=== PATIENT | female | born 1995 | race Two or more races ===

== ENCOUNTER → 2016-08-24 | Outpatient (REF) | payer OTHER ==
[2016-08-24 12:41] LABS: ALBUMIN/GLOBULIN RATIO 1.18 (1.00-1.93); ALKALINE PHOSPHATASE 113 U/L (45-117); ALT/SGPT 59 U/L (12-78); ANION GAP 8 MEQ/L (8-16); AST/SGOT 23 U/L (15-37); BILIRUBIN,TOTAL 0.2 MG/DL (0.2-1.0); BLOOD UREA NITROGEN 11 MG/DL (7-18); CALCIUM LEVEL 9.2 MG/DL (8.5-10.1); CARBON DIOXIDE LEVEL 27 MEQ/L (21-32); CHLORIDE LEVEL 107 MEQ/L (98-107); CREATININE FOR GFR 0.72 MG/DL (0.55-1.02); GLOMERULAR FILTRATION RATE > 60.0 (>60); GLUCOSE, FASTING 83 MG/DL (70-105); POTASSIUM SERUM 4.7 MEQ/L (3.5-5.1); SODIUM LEVEL 142 MEQ/L (136-145); TOTAL PROTEIN 7.4 GM/DL (6.4-8.2)
[2016-08-24 13:03] LABS: MEAN CORPUSCULAR HEMOGLOBIN 31.3 pg (27.0-33.0); MEAN CORPUSCULAR HGB CONC 33.6 g/dl (32.0-36.5); MEAN CORPUSCULAR VOLUME 93.2 fl (80.0-96.0); WHITE BLOOD COUNT 10.6 K/mm3 (4.0-10.0)
== END ==
LOC: M SFHCPLAZ 10:10
PROVIDERS: ATTEND Nurse Practitioner Adult Health
DX: Z00.00 Encounter for general adult medical examination without abnormal findings (principal)

== ENCOUNTER → 2017-01-14 | Outpatient (CLI) | payer OTHER ==
--- NOTE | 2017-01-14 21:08 | REP ---
Clinical: Pelvic pain. IUD placement. Technique: Transabdominal pelvic ultrasound followed by transvaginal examination for better evaluation of the endometrium and adnexa with color Doppler evaluation of the ovaries. Findings: Bladder is unremarkable and measures 11.1 x 5.7 x 9.3 cm . Normal anteverted uterus measures 9.1 x 4.1 x 4.9 cm . The endometrial complex measures approximately 6.6 mm thickness. No discrete uterine or endometrial abnormalities are appreciated. IUD identified in satisfactory position. Bilateral ovaries are normal in appearance and vascularity without evidence for torsion. Right ovary measures 3.9 x 3.3 x 2.8 cm with 2.3 cm dominant follicle ; R I = 0.57 . Left ovary measures 2.5 x 1.8 x 3.5 cm ; R I = 0.66 . No pelvic fluid or adnexal mass lesion. . Impression: 1. Normal pelvic ultrasound. 2. IUD in satisfactory position. 3. Normal ovaries without torsion. Dominant follicle noted in the right ovary. Signed by Delta Hernández MD 01/14/2017 09:00 P
== END ==
LOC: M RAD 17:15
PROVIDERS: ATTEND Physician Assistant
DX: Z30.431 Encounter for routine checking of intrauterine contraceptive device (principal)

== ENCOUNTER → 2020-05-09 | Outpatient (REF) | payer BC ==
[2020-05-09 14:30] LABS: ALBUMIN 3.9 GM/DL (3.2-5.2); ALT/SGPT 20 U/L (12-78); BILIRUBIN,TOTAL 0.6 MG/DL (0.2-1.0); BLOOD UREA NITROGEN 9 MG/DL (7-18); CALCIUM LEVEL 9.2 MG/DL (8.5-10.1); CARBON DIOXIDE LEVEL 29 MEQ/L (21-32); CHLORIDE LEVEL 107 MEQ/L (98-107); CREATININE FOR GFR 0.75 MG/DL (0.55-1.30); FREE T4 1.12 NG/DL (0.76-1.46); GLOMERULAR FILTRATION RATE > 60.0 (>60); GLUCOSE, FASTING 74 MG/DL (70-100); POTASSIUM SERUM 4.1 MEQ/L (3.5-5.1); SODIUM LEVEL 138 MEQ/L (136-145); TOTAL PROTEIN 7.5 GM/DL (6.4-8.2)
== END ==
LOC: M SFHCPLAZ 10:04
PROVIDERS: ATTEND Nurse Practitioner Adult Health
DX: Z00.00 Encounter for general adult medical examination without abnormal findings (principal); Z83.49 Family history of other endocrine, nutritional and metabolic diseases

== ENCOUNTER → 2021-06-04 | Outpatient (CLI) | payer BC ==
[2021-06-04 13:23] LABS: HEMATOCRIT 38.4 % (36.0-47.0); HEMOGLOBIN 12.8 g/dl (12.0-15.5); MEAN CORPUSCULAR HEMOGLOBIN 31.1 pg (27.0-33.0); MEAN CORPUSCULAR HGB CONC 33.3 g/dl (32.0-36.5); MEAN CORPUSCULAR VOLUME 93.2 fl (80.0-96.0); PLATELET COUNT, AUTOMATED 299 10^3/uL (150-450); RED BLOOD COUNT 4.12 10^6/uL (4.00-5.40); WHITE BLOOD COUNT 11.2 10^3/uL (4.0-10.0)
[2021-06-04 13:38] LABS: HEMOGLOBIN A1c 5.3 %
[2021-06-04 14:36] LABS: HEPATITIS C VIRUS ABY INDEX 0.1 INDEX (<0.8)
[2021-06-04 14:37] LABS: HIV 1&2 SCREEN CENTAUR NEGATIVE (NEGATIVE)
[2021-06-04 16:04] LABS: GC DNA AMPLIFICATION NEGATIVE (NEGATIVE)
== END ==
LOC: M PLALAB 10:51
PROVIDERS: ATTEND Advanced Practice Midwife
DX: Z36.9 Encounter for antenatal screening, unspecified (principal); Z3A.01 Less than 8 weeks gestation of pregnancy

== ENCOUNTER → 2021-07-08 | Outpatient (CLI) | payer BC | LOC: M PLALAB 09:01 | PROVIDERS: ATTEND Obstetrics & Gynecology | DX: Z31.5 Encounter for procreative genetic counseling (principal) ==

== ENCOUNTER → 2021-07-16 | Outpatient (REF) | payer BC | LOC: M LAB REF 16:08 | PROVIDERS: ATTEND Physician Assistant | DX: R50.9 Fever, unspecified (principal); R05.9 Cough, unspecified ==

== ENCOUNTER → 2021-09-12 | Outpatient (CLI) | payer BC | LOC: M WHC 10:30 | PROVIDERS: ATTEND Obstetrics & Gynecology | DX: Z36.89 Encounter for other specified antenatal screening (principal); Z3A.16 16 weeks gestation of pregnancy ==

== ENCOUNTER → 2021-10-13 | Outpatient (CLI) | payer BC ==
[2021-10-13 13:38] LABS: HEMATOCRIT 34.3 % (36.0-47.0); HEMOGLOBIN 11.7 g/dl (12.0-15.5); MEAN CORPUSCULAR HEMOGLOBIN 31.3 pg (27.0-33.0); MEAN CORPUSCULAR HGB CONC 34.1 g/dl (32.0-36.5); MEAN CORPUSCULAR VOLUME 91.7 fl (80.0-96.0); PLATELET COUNT, AUTOMATED 233 10^3/uL (150-450); RED BLOOD COUNT 3.74 10^6/uL (4.00-5.40); WHITE BLOOD COUNT 12.8 10^3/uL (4.0-10.0)
[2021-10-13 15:20] LABS: GC DNA AMPLIFICATION NEGATIVE (NEGATIVE)
== END ==
LOC: M PLALAB 09:02
PROVIDERS: ATTEND Obstetrics & Gynecology
DX: Z36.9 Encounter for antenatal screening, unspecified (principal); Z3A.26 26 weeks gestation of pregnancy

== ENCOUNTER → 2021-10-14 | Outpatient (CLI) | payer BC | LOC: M LAB 08:31 | PROVIDERS: ATTEND Obstetrics & Gynecology | DX: Z34.82 Encounter for supervision of other normal pregnancy, second trimester (principal); Z3A.26 26 weeks gestation of pregnancy ==

== ENCOUNTER → 2021-12-02 | Outpatient (CLI) | payer BC ==
[~2021-12-02] MED LIST: PRENTAB9 PO
== END ==
LOC: M WHC 12:31
PROVIDERS: ATTEND Obstetrics & Gynecology
DX: Z36.87 Encounter for antenatal screening for uncertain dates (principal); O26.849 Uterine size-date discrepancy, unspecified trimester; Z3A.30 30 weeks gestation of pregnancy

== ENCOUNTER 2021-12-03 09:49 | Outpatient (CLI) | payer BC ==
[~2021-12-03] VITALS: Ht 160 cm; Wt 96.5 kg
[2021-12-03 10:19] VITALS: BP 113/78
[2021-12-03] MEDS ORDERED: PRENTAB9 PO (10:22)
[2021-12-03] MEDS ORDERED: BETAMETHASONE SOLUSPAN 6MG/ML 5ML VIAL (J0702 PER 3MG) IM SCH (11:00)
[2021-12-03 11:57] VITALS: BP 136/101
[2021-12-03 11:58] VITALS: BP 139/101
[2021-12-03 12:09] VITALS: BP 132/82
[2021-12-03 12:33] VITALS: BP 118/72
[2021-12-03 12:34] LABS: HEMATOCRIT 37.7 % (36.0-47.0); HEMOGLOBIN 12.7 g/dl (12.0-15.5); MEAN CORPUSCULAR HEMOGLOBIN 30.8 pg (27.0-33.0); MEAN CORPUSCULAR HGB CONC 33.7 g/dl (32.0-36.5); MEAN CORPUSCULAR VOLUME 91.5 fl (80.0-96.0); PLATELET COUNT, AUTOMATED 184 10^3/uL (150-450); RED BLOOD COUNT 4.12 10^6/uL (4.00-5.40); WHITE BLOOD COUNT 13.6 10^3/uL (4.0-10.0)
[2021-12-03 13:00] LABS: CREATININE,RANDOM URINE 56.2 MG/DL; TOTAL PROTEIN,RANDOM URINE 21.3 MG/DL (0.0-12.0)
[2021-12-03 13:03] LABS: ALT/SGPT 11 U/L (12-78); BILIRUBIN,TOTAL 0.3 MG/DL (0.2-1.0); CREATININE FOR GFR 0.55 MG/DL (0.55-1.30); GLOMERULAR FILTRATION RATE > 60.0 (>60); LDH LACTATE DEHYDROGENASE 166 U/L (84-246); URIC ACID 5.1 MG/DL (2.6-6.0)
== END 2021-12-03 13:50 | disposition home or self-care (01) ==
LOC: M LDO 09:49
PROVIDERS: ATTEND Advanced Practice Midwife
DX: O36.5930 Maternal care for other known or suspected poor fetal growth, third trimester, not applicable or unspecified (principal); Z3A.33 33 weeks gestation of pregnancy; Z87.891 Personal history of nicotine dependence
CPT/HCPCS: 36415; 59025; 82247; 82565; 82570; 83615; 84156; 84450; 84460; 84550; 85027; 96372; G0378; G0463; J0702

== ENCOUNTER 2021-12-04 11:18 | Outpatient (CLI) | payer BC ==
[~2021-12-04] VITALS: Ht 160 cm; Wt 96.4 kg
[2021-12-04] MEDS ORDERED: BETAMETHASONE SOLUSPAN 6MG/ML 5ML VIAL (J0702 PER 3MG) IM ONE (11:30)
[2021-12-04 11:32] VITALS: BP 118/64
[2021-12-04] MEDS ORDERED: HOME MED LIST COMPLETE! XX SCH (11:35)
== END 2021-12-04 12:26 | disposition home or self-care (01) ==
LOC: M LDO 11:18
PROVIDERS: ATTEND Specialist
DX: O36.5930 Maternal care for other known or suspected poor fetal growth, third trimester, not applicable or unspecified (principal); Z3A.33 33 weeks gestation of pregnancy
CPT/HCPCS: 59025; 96372; G0378; J0702

== ENCOUNTER 2021-12-05 13:22 | Inpatient (IN) | payer BC, MEDICAID ==
[~2021-12-05] VITALS: Ht 160 cm; Wt 98.4 kg
[2021-12-05 14:30] VITALS: BP 176/87
[2021-12-05 18:07] LABS: HEMATOCRIT 32.4 % (36.0-47.0); HEMOGLOBIN 11.2 g/dl (12.0-15.5); MEAN CORPUSCULAR HEMOGLOBIN 31.6 pg (27.0-33.0); MEAN CORPUSCULAR HGB CONC 34.6 g/dl (32.0-36.5); MEAN CORPUSCULAR VOLUME 91.5 fl (80.0-96.0); PLATELET COUNT, AUTOMATED 162 10^3/uL (150-450); RED BLOOD COUNT 3.54 10^6/uL (4.00-5.40); WHITE BLOOD COUNT 17.2 10^3/uL (4.0-10.0)
[2021-12-05 18:32] VITALS: BP 164/94
[2021-12-05 18:51] VITALS: BP 152/88
[2021-12-05] MEDS ORDERED: OXYTOCIN INJ 10 UNITS/ML VIAL (J2590) IM PRN (18:55)
[2021-12-05] MEDS ORDERED: PENICILLIN G POTASSIUM IV 5 MU in D5W MINI-BAG PLUS 100 ML IV STA (18:55)
[2021-12-05] MEDS ORDERED: CARBOPROST TROMETHAMINE 250 MCG/ML AMP IM PRN (18:55)
[2021-12-05] MEDS ORDERED: OXYTOCIN DRIP 30 UNITS in IV 1 EA IV PRN ×4 (18:55)
[2021-12-05] MEDS ORDERED: TRANEXAMIC ACID INJection 1,000 MG in NS 100 ML IV PRN (18:55)
[2021-12-05 18:57] VITALS: BP 194/108
[2021-12-05 19:32] VITALS: BP 132/78
[2021-12-05 20:40] VITALS: BP 126/74
[2021-12-05 20:41] LABS: ALT/SGPT 13 U/L (12-78); BILIRUBIN,TOTAL 0.1 MG/DL (0.2-1.0); CREATININE FOR GFR 0.66 MG/DL (0.55-1.30); GLOMERULAR FILTRATION RATE > 60.0 (>60); LDH LACTATE DEHYDROGENASE 190 U/L (84-246); URIC ACID 5.4 MG/DL (2.6-6.0)
[2021-12-05 21:37] LABS: CREATININE,RANDOM URINE 95.3 MG/DL; TOTAL PROTEIN,RANDOM URINE 43.3 MG/DL (0.0-12.0)
[2021-12-05] MEDS ORDERED: PENICILLIN G POTASSIUM IV 2.5 MU in IV 1 EA IV SCH (22:55)
[2021-12-06] VITALS (12 sets, daily range): BP systolic 124–148; BP diastolic 68–82
[2021-12-06] MEDS ORDERED: miSOPROStol 25MCG 1/4 TABLET PO ONE (11:00)
[2021-12-06] MEDS ORDERED: miSOPROStol 50MCG 1/2 TABLET PO ONE (15:10)
[2021-12-06] MEDS ORDERED: LR 1,000 ML IV ONE (20:55)
[2021-12-07] VITALS (18 sets, daily range): BP systolic 127–242; BP diastolic 62–139
[2021-12-07] MEDS ORDERED: LR 1,000 ML IV SCH (01:45)
[2021-12-07] MEDS ORDERED: OXYTOCIN DRIP 30 UNITS in IV 1 EA IV SCH (01:45)
[2021-12-07] MEDS ORDERED: ACETAMINOPHEN 500 MG TAB PO PRN (02:05)
[2021-12-07] MEDS ORDERED: diphenhydrAMINE 50MG/ML VIAL (J1200) IV ONE (02:05)
[2021-12-07] MEDS ORDERED: PENICILLIN G POTASSIUM IV 5 MU in D5W MINI-BAG PLUS 100 ML IV STA (04:33)
[2021-12-07] MEDS ORDERED: NALOXONE INJ 0.4MG/1ML VIAL (J2310 PER 1MG) IV PRN (05:35)
[2021-12-07] MEDS ORDERED: diphenhydrAMINE 50MG/ML VIAL (J1200) IV PRN (05:35)
[2021-12-07] MEDS ORDERED: REFRIGERATOR IV KEYS XX PRN (05:35)
[2021-12-07] MEDS ORDERED: ONDANSETRON 4MG/2ML VIAL IV PRN (05:35)
[2021-12-07] MEDS ORDERED: FENTANYL/ROPIVACAINE/NACL BAG 100 ML EPIDURAL SCH (05:35)
[2021-12-07] MEDS ORDERED: EPIDURAL/PCA KEYS XX PRN (05:35)
[2021-12-07] MEDS ORDERED: ePHEDrine SULFATE 25 MG/5 ML(5MG/ML) SYRINGE IV PRN (05:35)
[2021-12-07] MEDS ORDERED: LACTATED RINGER'S 1000 ML IV PRN (05:35)
[2021-12-07] MEDS ORDERED: EPIDURAL COMMENT XX SCH (05:35)
[2021-12-07] MEDS ORDERED: FENTANYL 2MCG/ML ROPIVACAINE 0.2% IN 0.9% NACL 100ML IVBAG As Ordered ONE (05:37)
[2021-12-07] MEDS ORDERED: ceFAZolin 2 GM/D5W 50 ML IV BAG (J0690 PER 500MG) As Ordered ONE (07:51)
[2021-12-07] MEDS ORDERED: BICITRA 30ML SOLN UDC As Ordered ONE (07:52)
[2021-12-07] MEDS ORDERED: AZITHROMYCIN INJ 500 MG, VIAL MATE ADAPTER 1 EACH in NS 250 ML IV ONE (07:55)
[2021-12-07] MEDS ORDERED: ceFAZolin SOD 2 GM in IV 1 EA IV ONE (07:55)
[2021-12-07] MEDS ORDERED: AZITHROMYCIN INJ 500MG VIAL As Ordered ONE (07:56)
[2021-12-07] MEDS ORDERED: BICITRA 30ML SOLN UDC PO ONE (08:00)
[2021-12-07] MEDS ORDERED: MORPHINE PRES-FREE INJ 10 MG/10 ML VIAL As Ordered ONE (08:05)
[2021-12-07 08:27] LABS: HEMOGLOBIN 12.2 g/dl (12.0-15.5); MEAN CORPUSCULAR HGB CONC 33.9 g/dl (32.0-36.5); MEAN CORPUSCULAR VOLUME 91.6 fl (80.0-96.0); PLATELET COUNT, AUTOMATED 164 10^3/uL (150-450); RED BLOOD COUNT 3.93 10^6/uL (4.00-5.40); WHITE BLOOD COUNT 19.7 10^3/uL (4.0-10.0)
[2021-12-07 08:38] LABS: INR 0.89; PROTHROMBIN TIME 12.4 SECONDS (12.7-14.5)
[2021-12-07 08:39] LABS: PARTIAL THROMBOPLASTIN TIME 25.4 SECONDS (25.9-37.0)
[2021-12-07] MEDS ORDERED: DOCUSATE SODIUM 100MG CAPSULE PO PRN (09:00)
[2021-12-07] MEDS ORDERED: RHOGAM 300 MCG (1500 IU) INJ (J2790) IM SCH (09:00)
[2021-12-07] MEDS ORDERED: METHYLERGONOVINE MALEATE 0.2 MG TAB PO PRN (09:00)
[2021-12-07] MEDS ORDERED: DIBUCAINE 1% OINTMENT 30GM TOP PRN (09:00)
[2021-12-07] MEDS ORDERED: PENICILLIN G POTASSIUM IV 2.5 MU in IV 1 EA IV SCH (09:00)
[2021-12-07] MEDS ORDERED: MEASLES,MUMPS,RUBELLA VACCINE INJ (MMR-II) (90707) SC SCH (09:00)
[2021-12-07] MEDS: PRENATAL VITAMINS CHEWABLE TABLET PO SCH (09:37)
[2021-12-07] MEDS: IBUPROFEN 600MG TAB PO PRN ×2 (09:38→19:49)
[2021-12-07] MEDS: ACETAMINOPHEN 500 MG TAB PO PRN (19:49)
[2021-12-08 06:00] VITALS: BP 140/70
[2021-12-08] MEDS: ACETAMINOPHEN 500 MG TAB PO PRN (06:45)
[2021-12-08] MEDS: IBUPROFEN 600MG TAB PO PRN ×2 (06:45→21:59)
[2021-12-08] MEDS: PRENATAL VITAMINS CHEWABLE TABLET PO SCH (08:19)
[2021-12-09 05:40] VITALS: BP 150/85
[2021-12-09 05:48] VITALS: BP 142/86
[2021-12-09] MEDS: IBUPROFEN 600MG TAB PO PRN (05:49)
[2021-12-09] MEDS: PRENATAL VITAMINS CHEWABLE TABLET PO SCH (08:15)
== END 2021-12-09 12:40 | disposition home or self-care (01) | DRG 560 ==
LOC: M LDO 13:22 → M LDI 16:26 → M OBS 12-07 10:53
PROVIDERS: ADMIT Advanced Practice Midwife; ATTEND Obstetrics & Gynecology
PROC: 10E0XZZ Delivery of Products of Conception, External Approach (ICD-10-PCS; principal; 2021-12-07)
PROC: 10907ZC Drainage of Amniotic Fluid, Therapeutic from Products of Conception, Via Natural or Artificial Opening (ICD-10-PCS; 2021-12-07)
PROC: 3E0P7GC Introduction of Other Therapeutic Substance into Female Reproductive, Via Natural or Artificial Opening (ICD-10-PCS; 2021-12-07)
DX: O41.03X0 Oligohydramnios, third trimester, not applicable or unspecified (principal); O36.5930 Maternal care for other known or suspected poor fetal growth, third trimester, not applicable or unspecified; O99.344 Other mental disorders complicating childbirth; Z3A.33 33 weeks gestation of pregnancy; F41.9 Anxiety disorder, unspecified; O76 Abnormality in fetal heart rate and rhythm complicating labor and delivery; Z37.0 Single live birth

== ENCOUNTER → 2021-12-05 | Outpatient (REF) | payer BC ==
[~2021-12-05] MED LIST changes: +CARBOPROST TROMETHAMINE 250 MCG/ML AMP IM PRN; +LIDOCAINE 1% MDV 20ML VIAL INFIL PRN; +METHYLERGONOVINE MALEATE 0.2 MG/ML VIAL (J2210) IM PRN; +OXYTOCIN DRIP 30 UNITS in IV 1 EA IV PRN; +OXYTOCIN INJ 10 UNITS/ML VIAL (J2590) IM PRN; +TRANEXAMIC ACID INJection 1,000 MG in NS 100 ML IV PRN
== END ==
LOC: M SFHCWAGY 13:12
PROVIDERS: ATTEND Obstetrics & Gynecology
DX: Z53.9 Procedure and treatment not carried out, unspecified reason (principal)

== ENCOUNTER → 2021-12-05 | Outpatient (CLI) | payer BC ==
[~2021-12-05] MED LIST changes: -CARBOPROST TROMETHAMINE 250 MCG/ML AMP IM PRN; -LIDOCAINE 1% MDV 20ML VIAL INFIL PRN; -METHYLERGONOVINE MALEATE 0.2 MG/ML VIAL (J2210) IM PRN; -OXYTOCIN DRIP 30 UNITS in IV 1 EA IV PRN; -OXYTOCIN INJ 10 UNITS/ML VIAL (J2590) IM PRN; -TRANEXAMIC ACID INJection 1,000 MG in NS 100 ML IV PRN
== END ==
LOC: M WHC 10:39
PROVIDERS: ATTEND Obstetrics & Gynecology
DX: O28.8 Other abnormal findings on antenatal screening of mother (principal); O41.03X1 Oligohydramnios, third trimester, fetus 1; Z3A.33 33 weeks gestation of pregnancy

== ENCOUNTER → 2023-01-13 | Outpatient (CLI) | payer BC, MEDICAID | LOC: M WHC 13:29 | PROVIDERS: ATTEND Physician Assistant Medical | DX: N63.24 Unspecified lump in the left breast, lower inner quadrant (principal) ==

== ENCOUNTER → 2023-09-23 | Outpatient (CLI) | payer OTHER ==
[~2023-09-23] MED LIST changes: +PHEN-239 PO; +SERT50TA29 PO; +mirena
[2023-09-23 11:47] LABS: BASO # 0.1 10^3/uL (0.0-0.2); BASO % 0.7 % (0.0-1.0); EOS # 0.2 10^3/uL (0.0-0.5); EOS % 1.9 % (0.0-3.0); HEMOGLOBIN 13.5 g/dl (12.0-15.5); LYMPH # 2.7 10^3/uL (1.5-5.0); MEAN CORPUSCULAR HEMOGLOBIN 30.8 pg (27.0-33.0); MEAN CORPUSCULAR HGB CONC 32.9 g/dl (32.0-36.5); MEAN CORPUSCULAR VOLUME 93.6 fl (80.0-96.0); MONO # 0.6 10^3/uL (0.0-0.8); MONO % 6.7 % (2.0-8.0); NEUTROPHILS # 5.3 10^3/uL (1.5-8.5); NEUTROPHILS % 60.5 % (36.0-66.0); PLATELET COUNT, AUTOMATED 336 10^3/uL (150-450); RED BLOOD COUNT 4.38 10^6/uL (4.00-5.40); WHITE BLOOD COUNT 8.8 10^3/uL (4.0-10.0)
[2023-09-23 12:17] LABS: ALBUMIN 3.8 G/DL (3.2-5.2); ALKALINE PHOSPHATASE 76 U/L (46-116); ALT/SGPT 10 U/L (7.0-40); AST/SGOT < 8 U/L (<34); BILIRUBIN,TOTAL 0.4 MG/DL (0.3-1.2); BLOOD UREA NITROGEN 13 MG/DL (9-23); CALCIUM LEVEL 8.6 MG/DL (8.5-10.1); CARBON DIOXIDE LEVEL 27 MMOL/L (20-31); CHLORIDE LEVEL 106 MMOL/L (98-107); CHOLESTEROL LEVEL 193 MG/DL (<200); CHOLESTEROL RISK RATIO 4.73 (<5); CREATININE FOR GFR 0.66 MG/DL (0.55-1.30); GLOMERULAR FILTRATION RATE > 60.0 (>60); GLUCOSE, FASTING 89 MG/DL (60-100); HDL CHOLESTEROL 40.8 MG/DL (>40); LDL CHOLESTEROL 136.6 MG/DL (<100); NON-HDL-C 152.2 MG/DL; POTASSIUM SERUM 4.3 MMOL/L (3.5-5.1); SODIUM LEVEL 137 MMOL/L (136-145); TOTAL PROTEIN 6.6 G/DL (5.7-8.2); TRIGLYCERIDES LEVEL 78 MG/DL (<150)
[2023-09-23 12:21] LABS: TOTAL 25(OH) VITAMIN D 42.8 NG/ML (20.0-100.0)
[2023-09-23 12:22] LABS: VITAMIN B12 LEVEL 360 PG/ML (211-911)
== END ==
LOC: M PLALAB 07:23
PROVIDERS: ATTEND Nurse Practitioner Family
DX: F32.A Depression, unspecified (principal); E66.9 Obesity, unspecified

== ENCOUNTER 2023-10-07 06:11 | Observation (INO) | payer OTHER ==
[2023-10-07] VITALS (8 sets, daily range): BP systolic 100–130; BP diastolic 59–81; TEMP 97.7–98.8; O2SAT 94–98
[~2023-10-07] VITALS: Ht 160 cm; Wt 77.6 kg
[~2023-10-07 06:11] MED LIST changes: +LR 1,000 ML IV SCH
[2023-10-07] MEDS: SCOPOLAMINE 1MG TRANSDERMAL PATCH TOP ONE (07:03)
[2023-10-07] MEDS ORDERED: LIDOCAINE 2% 100MG/5ML SDV (FOR ANES.) As Ordered ONE (07:28)
[2023-10-07] MEDS ORDERED: propofoL 200 MG/20 ML VIAL As Ordered ONE (07:28)
[2023-10-07] MEDS ORDERED: dexmedeTOMIDine (4MCG/ML)200MCG/50ML BTL (PRECEDEX) As Ordered ONE (07:28)
[2023-10-07] MEDS ORDERED: ONDANSETRON 4MG 2ML VIAL As Ordered ONE (07:28)
[2023-10-07] MEDS ORDERED: ROCURONIUM BROMIDE 50MG/5ML VIAL As Ordered ONE (07:28)
[2023-10-07] MEDS ORDERED: MIDAZOLAM INJ 2MG/2ML VIAL As Ordered ONE (07:29)
[2023-10-07] MEDS ORDERED: fentaNYL 250 MCG/5 ML INJECTION As Ordered ONE (07:29)
[2023-10-07] MEDS: ceFAZolin SOD 2 GM in IV 1 EA IV ONE (07:30)
[2023-10-07] MEDS: HEPARIN SOD (PORCINE) 5000UNITS/ML 1ML VIAL/SYRINGE SQ ONE (07:50)
[2023-10-07] MEDS ORDERED: ACETAMINOPHEN 1000MG 100ML IV BAG As Ordered ONE (09:48)
[2023-10-07] MEDS ORDERED: HYDROmorphone HCL 2MG/ML 1ML VIAL As Ordered ONE (09:49)
[2023-10-07] MEDS ORDERED: SUGAMMADEX SODIUM 500 MG/5 ML VIAL (BRIDION) As Ordered ONE (10:00)
[2023-10-07] MEDS: GENTAMICIN SULF 80MG/2ML VIAL As Ordered ONE (11:12)
[2023-10-07] MEDS: LIDOCAINE 1% MDV 20ML VIAL As Ordered ONE (11:12)
[2023-10-07] MEDS: EPINEPHrine INJ 1 MG/ML 1ML AMP As Ordered ONE (11:13)
[2023-10-07] MEDS ORDERED: oxyCODONE 5MG TAB PO PRN (12:05)
[2023-10-07] MEDS ORDERED: fentaNYL 100 MCG/2 ML INJECTION IV PRN (12:05)
[2023-10-07] MEDS ORDERED: METOCLOPRAMIDE INJ 10MG/2ML VIAL IV PRN (12:05)
[2023-10-07] MEDS ORDERED: ONDANSETRON 4MG 2ML VIAL IV PRN ×2 (12:05→13:05)
[2023-10-07] MEDS: LR 1,000 ML IV SCH ×2 (12:05→13:05)
[2023-10-07] MEDS: ceFAZolin 2 GM/D5W 50 ML IV BAG As Ordered ONE (12:15)
[2023-10-07] MEDS: HYDROMORPHONE HCL 0.5 MG/ 0.5 ML SYRINGE IV PRN (13:22)
[2023-10-07] MEDS: traMADol 50 MG TAB PO PRN (15:01)
[2023-10-07] MEDS: PERCOCET 5MG/325MG TAB PO PRN (17:33)
[2023-10-07] MEDS: ACETAMINOPHEN TAB 650MG DOSE (2X325MG) PO PRN (18:35)
[2023-10-07] MEDS: ceFAZolin SOD 1 GM in D5W MINI-BAG PLUS 50 ML IV SCH (20:25)
[2023-10-08 04:22] VITALS: BP 115/65; TEMP 97.7; O2SAT 99
[2023-10-08] MEDS ORDERED: PERCOCET PO (13:58)
== END 2023-10-08 15:00 | disposition home or self-care (01) ==
LOC: M SDC 06:11 → M RR INP 13:02 → M MS5PR 14:40
PROVIDERS: ADMIT Plastic Surgery Surgery of the Hand; ATTEND Plastic Surgery Surgery of the Hand
DX: N62 Hypertrophy of breast (principal); N64.81 Ptosis of breast; E88.1 Lipodystrophy, not elsewhere classified; M54.6 Pain in thoracic spine; M54.2 Cervicalgia; F41.9 Anxiety disorder, unspecified; Z97.5 Presence of (intrauterine) contraceptive device; Z79.899 Other long term (current) drug therapy
CPT/HCPCS: 19316; 19318; 81025; 87635; 88300; 88305; 96374; 96376; C9290; J0131; J0171; J0665; J0690; J1100; J1170; J1580; J2250; J2405; J3010

== ENCOUNTER → 2023-12-22 | Outpatient (REF) | payer BC, MEDICAID, OTHER ==
[~2023-12-22] MED LIST changes: -LR 1,000 ML IV SCH; +PERCOCET PO
[2023-12-22 19:08] LABS: Trichomonas vaginalis (AMP) NOT DETECTED (NEGATIVE)
[2023-12-22 19:31] LABS: GC DNA AMPLIFICATION NEGATIVE (NEGATIVE)
== END ==
LOC: M SFHCWAGY 17:09
PROVIDERS: ATTEND Nurse Practitioner Family
DX: Z11.3 Encounter for screening for infections with a predominantly sexual mode of transmission (principal)

== ENCOUNTER → 2023-12-31 | Outpatient (REF) | payer OTHER, BC | LOC: M LAB REF 15:10 | PROVIDERS: ATTEND Nurse Practitioner Family | DX: N39.0 Urinary tract infection, site not specified (principal) ==

== ENCOUNTER → 2024-02-14 | Outpatient (CLI) | payer OTHER ==
[2024-02-14 18:20] LABS: BASO # 0.1 10^3/uL (0.0-0.2); BASO % 0.9 % (0.0-1.0); EOS # 0.3 10^3/uL (0.0-0.5); EOS % 2.1 % (0.0-3.0); HEMATOCRIT 42.6 % (36.0-47.0); LYMPH # 3.9 10^3/uL (1.5-5.0); LYMPH % 27.5 % (24.0-44.0); MEAN CORPUSCULAR HEMOGLOBIN 30.9 pg (27.0-33.0); MEAN CORPUSCULAR HGB CONC 32.9 g/dl (32.0-36.5); MONO # 0.8 10^3/uL (0.0-0.8); MONO % 5.7 % (2.0-8.0); NEUTROPHILS % 63.2 % (36.0-66.0); PLATELET COUNT, AUTOMATED 317 10^3/uL (150-450); RED BLOOD COUNT 4.53 10^6/uL (4.00-5.40); WHITE BLOOD COUNT 14.2 10^3/uL (4.0-10.0)
[2024-02-14 18:37] LABS: ERYTHROCYTE SEDIMENTATION RATE 18 mm/hr (0-20)
[2024-02-14 18:46] LABS: C REACTIVE PROTEIN QUANTITATIV < 0.40 MG/DL (<1.0)
[2024-02-14 18:47] LABS: ALBUMIN 3.8 G/DL (3.2-5.2); ALKALINE PHOSPHATASE 78 U/L (46-116); ALT/SGPT 14 U/L (7.0-40); AST/SGOT < 8 U/L (<34); BILIRUBIN,TOTAL 0.3 MG/DL (0.3-1.2); BLOOD UREA NITROGEN 9 MG/DL (9-23); CALCIUM LEVEL 9.1 MG/DL (8.5-10.1); CARBON DIOXIDE LEVEL 30 MMOL/L (20-31); CHLORIDE LEVEL 106 MMOL/L (98-107); CREATININE FOR GFR 0.69 MG/DL (0.55-1.30); GLOMERULAR FILTRATION RATE > 60.0 (>60); GLUCOSE, FASTING 58 MG/DL (60-100); POTASSIUM SERUM 4.3 MMOL/L (3.5-5.1); SODIUM LEVEL 137 MMOL/L (136-145); TOTAL PROTEIN 6.6 G/DL (5.7-8.2)
[2024-02-14 18:54] LABS: HEMOGLOBIN A1c 5.4 % (4.0-6.0)
== END ==
LOC: M PLALAB 15:28
PROVIDERS: ATTEND Nurse Practitioner Family
DX: E11.9 Type 2 diabetes mellitus without complications (principal); F32.A Depression, unspecified; R68.89 Other general symptoms and signs; E66.9 Obesity, unspecified; Z68.30 Body mass index [BMI] 30.0-30.9, adult

== ENCOUNTER → 2024-02-21 | Outpatient (CLI) | payer BC, MEDICAID, OTHER | LOC: M WHC 13:50 | PROVIDERS: ATTEND Nurse Practitioner Family | DX: R22.9 Localized swelling, mass and lump, unspecified (principal) ==

== ENCOUNTER → 2024-03-30 | Outpatient (REF) | payer BC, OTHER ==
[2024-03-30 19:24] LABS: Trichomonas vaginalis (AMP) NOT DETECTED (NEGATIVE)
[2024-03-30 19:47] LABS: GC DNA AMPLIFICATION NEGATIVE (NEGATIVE)
== END ==
LOC: M SFHCWAGY 17:13
PROVIDERS: ATTEND Nurse Practitioner Family
DX: Z11.3 Encounter for screening for infections with a predominantly sexual mode of transmission (principal)

== ENCOUNTER → 2024-07-25 | Outpatient (CLI) | payer OTHER | LOC: M WHC 09:05 | PROVIDERS: ATTEND Nurse Practitioner Family | DX: N94.10 Unspecified dyspareunia (principal) ==

== ENCOUNTER → 2024-08-15 | Outpatient (REF) | payer MEDICAID, OTHER ==
[2024-08-15 19:55] LABS: Trichomonas vaginalis (AMP) NOT DETECTED (NEGATIVE)
[2024-08-15 20:19] LABS: GC DNA AMPLIFICATION NEGATIVE (NEGATIVE)
== END ==
LOC: M SFHCWAGY 17:01
PROVIDERS: ATTEND Nurse Practitioner Family
DX: R39.89 Other symptoms and signs involving the genitourinary system (principal); R39.9 Unspecified symptoms and signs involving the genitourinary system

== ENCOUNTER → 2024-11-30 | Outpatient (CLI) | payer OTHER ==
[~2024-11-30] MED LIST changes: -PHEN-239 PO; +PHEN37.511 PO
[2024-11-30 16:44] LABS: FREE T4 1.02 NG/DL (0.89-1.76); THYROID STIMULATING HORMONE 1.591 uIU/ML (0.55-4.78)
[2024-11-30 16:55] LABS: HEMOGLOBIN A1c 5.1 % (4.0-6.0)
== END ==
LOC: M PLALAB 12:17
PROVIDERS: ATTEND Nurse Practitioner Family
DX: E66.3 Overweight (principal)

== ENCOUNTER → 2025-02-02 | Outpatient (REF) | payer OTHER ==
[2025-02-02 14:55] LABS: Trichomonas vaginalis (AMP) NOT DETECTED (NEGATIVE)
[2025-02-02 15:19] LABS: GC DNA AMPLIFICATION NEGATIVE (NEGATIVE)
== END ==
LOC: M SFHCPLAZ 13:02
PROVIDERS: ATTEND Nurse Practitioner Family
DX: R39.89 Other symptoms and signs involving the genitourinary system (principal)

== ENCOUNTER → 2025-02-05 | Outpatient (REF) | payer BC, MEDICAID | LOC: M PLALAB 15:51 | PROVIDERS: ATTEND Nurse Practitioner Family | DX: N89.8 Other specified noninflammatory disorders of vagina (principal) ==

== ENCOUNTER → 2025-03-08 | Outpatient (REF) | payer BC, MEDICAID ==
[2025-03-08 12:02] LABS: CREATININE FOR GFR 0.71 MG/DL (0.55-1.30); GLOMERULAR FILTRATION RATE > 90.0 (>60)
[2025-03-08 12:48] LABS: Trichomonas vaginalis (AMP) NOT DETECTED (NEGATIVE)
== END ==
LOC: M SFHCWAGY 10:15
PROVIDERS: ATTEND Nurse Practitioner Family
DX: Z11.3 Encounter for screening for infections with a predominantly sexual mode of transmission (principal); Z68.31 Body mass index [BMI] 31.0-31.9, adult

== ENCOUNTER → 2025-03-12 | Outpatient (REF) | payer BC, MEDICAID ==
[2025-03-12 14:54] LABS: Trichomonas vaginalis (AMP) NOT DETECTED (NEGATIVE)
[2025-03-12 15:18] LABS: GC DNA AMPLIFICATION NEGATIVE (NEGATIVE)
== END ==
LOC: M SFHCWAGY 12:41
PROVIDERS: ATTEND Nurse Practitioner Family
DX: Z11.3 Encounter for screening for infections with a predominantly sexual mode of transmission (principal)

== ENCOUNTER → 2025-04-19 | Outpatient (REF) | payer BC, MEDICAID ==
[2025-04-19 14:39] LABS: Trichomonas vaginalis (AMP) NOT DETECTED (NEGATIVE)
[2025-04-19 15:03] LABS: GC DNA AMPLIFICATION NEGATIVE (NEGATIVE)
== END ==
LOC: M SFHCWAGY 12:45
PROVIDERS: ATTEND Nurse Practitioner Family
DX: Z11.3 Encounter for screening for infections with a predominantly sexual mode of transmission (principal)

== ENCOUNTER → 2025-06-19 | Outpatient (REF) | payer BC ==
[2025-06-19 14:57] LABS: Trichomonas vaginalis (AMP) NOT DETECTED (NEGATIVE)
[2025-06-19 15:21] LABS: GC DNA AMPLIFICATION NEGATIVE (NEGATIVE)
== END ==
LOC: M SFHCWAGY 13:03
PROVIDERS: ATTEND Nurse Practitioner Family
DX: N89.8 Other specified noninflammatory disorders of vagina (principal)